=== PATIENT | female | born 1950 | race American Indian/Alaskan Native ===

== ENCOUNTER 2017-09-29 10:01 | Day surgery (SDC) | payer MEDICARE, OTHER ==
[2017-09-29 10:42] LABS: Basophils % (Auto) 0.7 % (0.0-1.8); Eosinophils % (Auto) 0.9 % (0.0-4.3); Hematocrit 31.3 % (30.3-42.9); Hemoglobin 10.9 gm/dl (10.1-14.3); Lymphocytes % (Auto) 27.4 % (13.4-35.0); Mean Corpuscular HGB Conc 35 % (30-34); Mean Corpuscular Hemoglobin 35 pg (28-32); Mean Corpuscular Volume 101 fl (79-97); Monocytes # (Auto) 0.2 K/mm3 (0.0-0.8); Monocytes % (Auto) 5.1 % (0.0-7.3); Platelet Count 297 K/mm3 (140-440); Red Blood Count 3.12 M/mm3 (3.65-5.03); Red Cell Distribution Width 16.3 % (13.2-15.2)
[2017-09-29 10:55] LABS: INR 0.95 (0.87-1.13)
[2017-09-29 10:56] LABS: Partial Thromboplastin Time 26.4 Sec. (24.2-36.6)
[2017-09-29] MEDS ORDERED: NACL 0.9% 500 ML 500 ML IV SCH (11:00)
[2017-09-29] MEDS ORDERED: HURRICAINE ONE 20% TOPICAL SPRAY MM NR (11:00)
[2017-09-29 11:02] LABS: Alanine Aminotransferase 24 units/L (7-56); Albumin 4.3 g/dL (3.9-5); BUN/Creatinine Ratio 20; Blood Urea Nitrogen 14 mg/dL (7-17); Calcium 9.9 mg/dL (8.4-10.2); Hemolysis Index 10
[2017-09-29] MEDS ORDERED: K-DUR PO ONE (11:30)
--- NOTE | 2017-09-29 11:44 | Anesthesia Consultation ---
Anesthesia Consult and Med Hx Date of service: 09/29/17 - Airway Anesthetic Teeth Evaluation: Good ROM Head & Neck: Adequate Mental/Hyoid Distance: Adequate Mallampati Class: Class II Intubation Access Assessment: Probably Good - Pre-Operative Health Status ASA Pre-Surgery Classification: ASA3 Proposed Anesthetic Plan: MAC - Pulmonary Hx Smoking: No - Cardiovascular System Hx Hypertension: Yes Hx Cardia Arrhythmia: Yes - Central Nervous System Hx Psychiatric Problems: No - Endocrine Hx Non-Insulin Dependent Diabetes: Yes - Other Systems Hx Cancer: Yes (Breast CA, chemotherapy)
--- NOTE | 2017-09-29 11:44 | Anesthesia Day of Surgery ---
Anesthesia Day of Surgery - Day of Surgery Patient Examined: Yes Patient H&P Reviewed: Yes Patient is NPO: Yes Beta Blockers: Yes
[2017-09-29] MEDS ORDERED: DIPRIVAN 10 MG/ML IV ONE ×2 (12:01)
[2017-09-29] MEDS ORDERED: XYLOCAINE MPF 2% ONE (13:00)
[2017-09-29 14:36] VITALS: BP 180/105
--- NOTE | 2017-10-01 22:27 | Treadmill Report ---
TRANSESOPHAGEAL ECHOCARDIOGRAPHY REASON FOR TRANSESOPHAGEAL ECHOCARDIOGRAPHY: Right atrial mass noted on transthoracic echocardiogram. DESCRIPTION OF PROCEDURE: Informed consent was first obtained for transesophageal echocardiography. The oropharynx was then typically anesthetized using a Cetacaine spray. The patient was anesthetized using intravenous propofol by the anesthesiologist. With the patient in a supine position, the transesophageal endoscope was advanced to approximately 50 cm and the echocardiographic examination completed. At the end of the examination, the endoscope was removed and the patient was then monitored until clinically stable. No apparent complications were noted from the procedure. FINDINGS: AORTIC VALVE AND LEFT VENTRICLE OUTFLOW TRACT: The aortic valve appears structurally normal. No valvular stenosis. Mild regurgitation is present by color flow marking. AORTA: The aortic root appears normal. There are no significant atheromatous changes within the thoracic aorta. MITRAL VALVE: The valve appears structurally normal. No valvular stenosis. Trace regurgitation is present by color flow marking. LEFT ATRIUM: Normal. No thrombus is identified within the left atrium or left atrial appendage. LEFT VENTRICLE: Normal cavity size with [id number] global hypokinesis. The visually estimated left ventricular ejection fraction is 50-55%. No thrombus is identified. PULMONIC VALVE AND RIGHT VENTRICLE OUTFLOW TRACT: Normal. No valvular stenosis or regurgitation. TRICUSPID VALVE: Structurally normal. Trace regurgitation is present by color flow marking. No valvular stenosis. RIGHT ATRIUM: Normal. A prominent eustachian valve is noted. RIGHT VENTRICLE: Normal size and systolic function. No thrombus is identified. PERICARDIAL SPACE: Normal without effusion. The interatrial septum appears aneurysmal. There is no demonstrable interatrial shunt by color flow Doppler or filling contrast injection. SUMMARY: A prominent eustachian valve is noted in the right atrium. 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 There is no demonstrable interatrial shunt. There is trace mitral and tricuspid regurgitation. Mild aortic regurgitation is present. The left ventricular cavity appears normal in size with [id number] global systolic dysfunction. EF is 40-45%. Right ventricular size and systolic function appear normal. JOB# [id number] [facility]
== END 2017-09-29 15:15 | disposition home or self-care (01) ==
LOC: CATHLABREC 10:01 → EDSTATUS 12:00 → CATHLABREC 15:15
PROVIDERS: ATTEND Internal Medicine Cardiovascular Disease
DX: I51.89 Other ill-defined heart diseases (principal); I34.0 Nonrheumatic mitral (valve) insufficiency; I36.1 Nonrheumatic tricuspid (valve) insufficiency; I35.1 Nonrheumatic aortic (valve) insufficiency; I10 Essential (primary) hypertension; E11.9 Type 2 diabetes mellitus without complications; Z85.3 Personal history of malignant neoplasm of breast; Z92.21 Personal history of antineoplastic chemotherapy
CPT/HCPCS: 36415; 80053; 85025; 85610; 85730; 93312; 93320; 93325; J2704; J7040